=== PATIENT | male | born 1995 | race Caucasian/White ===

== ENCOUNTER 2016-08-26 16:22 | Inpatient (IN) | payer OTHER, BC ==
[~2016-08-26] VITALS: Ht 188 cm; Wt 102.9 kg
[2016-08-26] MEDS ORDERED: SODIUM CHLORIDE 0.9% 1000ML 3,000 ML IV STA (16:52)
[2016-08-26] MEDS ORDERED: KETOROLAC TROMETHAMINE 30 MG/ML VIAL IV STA (16:52)
[2016-08-26] MEDS ORDERED: ACETAMINOPHEN 500 MG TAB PO STA (16:52)
[2016-08-26] MEDS ORDERED: ONDANSETRON INJ 2 MG/ML 2 ML VIAL IV STA (16:52)
[2016-08-26 17:03] LABS: BASO % 0.1 %; BASO ABS # 0.01 K/uL (0-0.2); COMPLETE YES; EOS % 0.1 %; HEMATOCRIT 44.2 % (42-52); IG% 0.1 %; LYMPH % 4.4 %; LYMPH ABS # 0.43 K/uL (1.2-3.4); MEAN CELL VOLUME 85.7 fL (80-100); MEAN CORPUSCULAR HEMOGLOBIN 31.6 pg (25-34); MEAN CORPUSCULAR HGB CONC 36.9 g/dl (32-36); MEAN PLATELET VOLUME 9.9 fL (7.4-10.4); MONO % 0.8 %; NEUT % 94.5 %; PLATELET COUNT 157 K/uL (130-400); RED BLOOD COUNT 5.16 M/uL (4.7-6.1); WHITE BLOOD COUNT 9.83 K/uL (4.8-10.8)
[2016-08-26 17:11] LABS: ALT/SGPT 43 U/L (12-78); AST/SGOT 21 U/L (15-37); BLOOD UREA NITROGEN 16 mg/dl (7-18); BUN/CREATININE RATIO 14.4 (10-20); CALCIUM 9.2 mg/dl (8.5-10.1); CARBON DIOXIDE 23 mmol/L (21-32); CHLORIDE 104 mmol/L (98-107); GLUCOSE 86 mg/dl (70-99); SODIUM 138 mmol/L (136-145)
[2016-08-26 17:16] LABS: ALKALINE PHOSPHATASE 54 U/L (45-117); CKMB/CK RATIO 0.4 (0-3.0)
[2016-08-26 17:20] LABS: PARTIAL THROMBOPLASTIN RATIO 0.9; PROTHROMBIN TIME (PATIENT) 11.2 SECONDS (9.0-12.0)
--- NOTE | 2016-08-26 17:21 | DIAGNOSTIC IMAGING REPORT ---
CHEST ONE VIEW PORTABLE CLINICAL HISTORY: Fever and sepsis COMPARISON STUDY: No previous studies for comparison. FINDINGS: The heart is normal in size. There is no failure. There are minimal left basilar airspace opacities. This could reflect a minimal pneumonitis or atelectatic change. There are no pleural effusions.[ IMPRESSION: Minimal left basilar airspace opacities (inflammatory versus atelectatic). Electronically signed by: Virgilio Paul M.D. 08/26/2016 5:20 PM Dictated Date/Time: 08/26/2016 5:19 PM
[2016-08-26] MEDS ORDERED: LEVAQUIN 500MG / 100ML D5W IV ONE (18:00)
--- NOTE | 2016-08-26 18:02 | EMERGENCY ROOM VISIT NOTE ---
History Report prepared by Mpibdeniz: Sri Javier Under the Supervision of: Dr. Saroj Simms D.O. First contact with patient: 16:47 Chief Complaint: FLU LIKE SX Stated Complaint: FLU LIKE SX History of Present Illness The patient is a 20 year old male who presents to the Emergency Room with complaints of persistent vomiting that started last night. The patient states that he has experienced three episodes of vomiting. He states that he cannot keep anything down. He tried drinking fluids, but he vomited 20 minutes after. He is also experiencing a fever, mild headache, cough, sorethroat, neck stiffness in the front of his neck, intermittent abdominal pain, and generalized muscle aches. He denies photophobia and diarrhea. Additionally, he is experiencing lightheadedness with changes in position. Source of History: patient Onset: last night Quality: other (vomiting) Timing: other (persistent) Associated Symptoms: + abdominal pain (intermittent), + cough, + fevers, + headache (mild), + sorethroat, No diarrhea Note: lightheadedness with changes in position, neck stiffness in the front of his neck, generalized muscle aches, no photophobia Review of Systems See HPI for pertinent positives & negatives. A total of 10 systems reviewed and were otherwise negative. Past Medical & Surgical Medical Problems: (1) No pertinent past medical history Family History No pertinent family history Social History Smoking Status: Never Smoker Housing Status: lives with roommate Occupation Status: [employer] student Current/Historical Medications No Active Prescriptions or Reported Meds Allergies Coded Allergies: No Known Allergies (Unverified , 08/26/16) Physical Exam Vital Signs Date Time Temp Pulse Resp B/P Pulse Ox O2 Delivery O2 Flow Rate FiO2 08/26/16 17:42 39.2 125 100/51 96 Room Air 08/26/16 17:06 133 28 137/67 97 Room Air 08/26/16 16:33 124 08/26/16 16:27 39.6 145 28 130/71 96 Room Air Physical Exam CONSTITUTIONAL/VITAL SIGNS: Reviewed / noted above. GENERAL: Non-toxic in appearance. INTEGUMENTARY: Warm, dry, and [place]. HEAD: Normocephalic. EYES: without scleral icterus or trauma. ENT/OROPHARYNX: clear and moist. No photosensitivity. LYMPHADENOPATHY/NECK: Is supple without meningismus. Mild anterior lymphadenopathy. RESPIRATORY: Lungs clear and equal. CARDIOVASCULAR: Regular rate and rhythm. GI/ABDOMEN: Soft and nontender. No organomegaly or pulsatile mass. No rebound or guarding. Normal bowel sounds. EXTREMITIES: Warm and well perfused. BACK: No CVA tenderness. NEUROLOGICAL: Intact without focal deficits. PSYCHIATRIC: normal affect. MUSCULOSKELETAL: Normally developed with good muscle tone. Medical Decision & Procedures ER Provider Diagnostic Interpretation: X ray results and stated below per my interpretation and radiology interpretation. CHEST ONE VIEW PORTABLE IMPRESSION: Minimal left basilar airspace opacities (inflammatory versus atelectatic). Electronically signed by: Virgilio Paul M.D. 08/26/2016 5:20 PM Dictated Date/Time: 08/26/2016 5:19 PM Laboratory Results 08/26/16 16:35 Red Blood Count 5.16, Mean Corpuscular Volume 85.7, Mean Corpuscular Hemoglobin 31.6, Mean Corpuscular Hemoglobin Concent 36.9, Mean Platelet Volume 9.9, Neutrophils (%) (Auto) 94.5, Lymphocytes (%) (Auto) 4.4, Monocytes (%) (Auto) 0.8, Eosinophils (%) (Auto) 0.1, Basophils (%) (Auto) 0.1, Neutrophils # (Auto) 9.29, Lymphocytes # (Auto) 0.43, Monocytes # (Auto) 0.08, Eosinophils # (Auto) 0.01, Basophils # (Auto) 0.01 08/26/16 16:35 Test 08/26/16 16:35 08/26/16 16:37 08/26/16 16:50 White Blood Count 9.83 K/uL (4.8-10.8) Red Blood Count 5.16 M/uL (4.7-6.1) Hemoglobin 16.3 g/dL (14.0-18.0) Hematocrit 44.2 % (42-52) Mean Corpuscular Volume 85.7 fL (80-100) Mean Corpuscular Hemoglobin 31.6 pg (25-34) Mean Corpuscular Hemoglobin Concent 36.9 g/dl (32-36) Platelet Count 157 K/uL (130-400) Mean Platelet Volume 9.9 fL (7.4-10.4) Neutrophils (%) (Auto) 94.5 % Lymphocytes (%) (Auto) 4.4 % Monocytes (%) (Auto) 0.8 % Eosinophils (%) (Auto) 0.1 % Basophils (%) (Auto) 0.1 % Neutrophils # (Auto) 9.29 K/uL (1.4-6.5) Lymphocytes # (Auto) 0.43 K/uL (1.2-3.4) Monocytes # (Auto) 0.08 K/uL (0.11-0.59) Eosinophils # (Auto) 0.01 K/uL (0-0.5) Basophils # (Auto) 0.01 K/uL (0-0.2) RDW Standard Deviation 35.9 fL (36.4-46.3) RDW Coefficient of Variation 11.7 % (11.5-14.5) Immature Granulocyte % (Auto) 0.1 % Immature Granulocyte # (Auto) 0.01 K/uL (0.00-0.02) Prothrombin Time 11.2 SECONDS (9.0-12.0) Prothromb Time International Ratio 1.0 (0.9-1.1) Activated Partial Thromboplast Time 23.8 SECONDS (21.0-31.0) Partial Thromboplastin Ratio 0.9 Anion Gap 11.0 mmol/L (3-11) Est Creatinine Clear Calc Drug Dose 135.7 ml/min Estimated GFR () 109.9 Estimated GFR (Non- 94.8 BUN/Creatinine Ratio 14.4 (10-20) Calcium Level 9.2 mg/dl (8.5-10.1) Total Bilirubin 1.3 mg/dl (0.2-1) Direct Bilirubin 0.2 mg/dl (0-0.2) Aspartate Amino Transf (AST/SGOT) 21 U/L (15-37) Alanine Aminotransferase (ALT/SGPT) 43 U/L (12-78) Alkaline Phosphatase 54 U/L (45-117) Total Creatine Kinase 139 U/L (39-308) Creatine Kinase MB 0.6 ng/ml (0.5-3.6) Creatine Kinase MB Ratio 0.4 (0-3.0) Troponin I < 0.015 ng/ml (0-0.045) Total Protein 8.0 gm/dl (6.4-8.2) Albumin 4.7 gm/dl (3.4-5.0) Lipase 87 U/L (73-393) Bedside Lactic Acid Venous 1.52 mmol/L (0.90-1.70) Influenza Type A Antigen Neg for Influ A (NEG) Influenza Type B Antigen Neg for Influ B (NEG) Laboratory results as stated above per my review. Medications Administered Medications (Trade) Dose Ordered Sig/Chuck Route Start Time Stop Time Status Last Admin Dose Admin Sodium Chloride (Nss 1000ml) 3,000 ml @ 999 mls/hr Q3H1M STAT IV 08/26/16 16:52 08/26/16 19:52 08/26/16 16:55 999 MLS/HR Ketorolac Tromethamine (Toradol Inj) 30 mg NOW STAT IV 08/26/16 16:52 08/26/16 16:54 DC 08/26/16 17:01 30 MG Ondansetron HCl (Zofran Inj) 4 mg NOW STAT IV 08/26/16 16:52 08/26/16 16:54 DC 08/26/16 16:59 4 MG Acetaminophen (Tylenol Tab) 1,000 mg NOW STAT PO 08/26/16 16:52 08/26/16 16:54 DC 08/26/16 17:02 1,000 MG Levofloxacin (Levaquin / D5W) 500 mg NOW ONCE IV 08/26/16 18:00 08/26/16 18:01 DC 08/26/16 17:56 500 MG ECG Indication: tachycardia Rate (beats per minute): 121 Rhythm: sinus tachycardia Findings: no acute ischemic change, no ectopy ED Course 1648: Previous medical records were reviewed. The patient was evaluated in room B7. A complete history and physical examination was performed. 1652: Ordered Tylenol Tab 1000 mg PO, Zofran Inj 4 mg IV, Toradol Inj 30 mg IV, Sodium Chloride 3000 ml @ 999 mls/hr IV 1747: On reevaluation, the patient is resting comfortably, but still tachycardic. I discussed the results and findings with him. He verbalized agreement of the treatment plan. The patient will be evaluated for further management and care. 1755: Discussed the patient's case with Dr. Cheo Mccain [facility] [place] The patient will be evaluated for further treatment and disposition. 1800: Ordered Levofloxacin 500 mg IV Medical Decision Differential includes viral illness, influenza, streptococcal pharyngitis, meningitis, pneumonia, sinusitis, UTI, pyelonephritis, otitis media. This is a 20-year-old male who presents to the ED with a chief complaint of vomiting. The patient states that he has vomited about 3 times since last night. He states that he is not able to tolerate any liquids or Tylenol as afternoon. He complains of a mild headache. Denies any light sensitivity or neck stiffness. He does complain of a sore throat and some discomfort in the anterior neck region. He denies any abdominal pains, back pains, shortness of breath or chest pains. No rashes. Temperature here is 39.6. Heart rate is 124 and he is tachypneic with a respiratory rate of 28. His physical exam was mostly benign. He has some mild anterior lymphadenopathy. He is tachycardic. No other abnormalities were noted on his based on exam. He does look somewhat ill. Chest x-ray suggesting a left base infiltrate versus atelectasis. CBC is normal. Complete metabolic panel is normal. Lactate was normal. Troponin is negative. Flu swab was negative. EKG shows a sinus tach. The patient was treated with 3 L normal saline IV as well as some by mouth Tylenol as well as IV Toradol. On reassessment, the patient's symptoms are slightly improved. He still tachycardic with a heart rate in the 120 to 1:30 range. He still febrile. Because of his continued symptoms, he will be seen by the hospitalist service for further inpatient care. He was treated with Levaquin IV. Consults Time Called: 1750 Consulting Physician: Dr. Cheo LOZADA Returned Call: 1755 Discussed the patient's case with Dr. Cheo LOZADA. The patient will be evaluated for further treatment and disposition. Impression Primary Impression: Pneumonia Additional Impression: Influenza-like symptoms Scribe Attestation The scribe's documentation has been prepared under my direction and personally reviewed by me in its entirety. I confirm that the note above accurately reflects all work, treatment, procedures, and medical decision making performed by me. Departure Information Dispostion Being Evaluated By Hospitalist Prescriptions No Active Prescriptions or Reported Meds Referrals No Doctor, Assigned (PCP) Patient Instructions My [facility] Problem Qualifiers
[2016-08-26] MEDS ORDERED: KETOROLAC TROMETHAMINE 15 MG/ML VIAL IV. PRN (18:45)
[2016-08-26] MEDS ORDERED: ONDANSETRON INJ 2 MG/ML 2 ML VIAL IV PRN (18:45)
[2016-08-26] MEDS ORDERED: ACETAMINOPHEN 325 MG TAB PO PRN (18:45)
[2016-08-26] MEDS ORDERED: KETOROLAC TROMETHAMINE 30 MG/ML VIAL IV. PRN (18:45)
[2016-08-26 20:02] VITALS: BP 92/58; PULSE 135; TEMP 38; O2SAT 95; Ht 188 cm; Wt 102.9 kg
[2016-08-26] MEDS ORDERED: OPTIRAY 320 IV PRN (20:30)
[2016-08-26] MEDS ORDERED: D5W AND 1/2NSS + 20MEQ KCL 1,000 ML IV SCH (20:30)
--- NOTE | 2016-08-26 20:54 | DIAGNOSTIC IMAGING REPORT ---
ULTRASOUND VENOUS DOPPLER LWR EXT BILA CLINICAL HISTORY: Elevated d-dimer. Possible DVT. POSSIBLE PULMONARY EMBOLISM. COMPARISON STUDY: No previous studies for comparison. FINDINGS: Real-time and color flow Doppler imaging were performed. Flow was seen within the femoral, popliteal and calf veins with no intraluminal thrombus demonstrated. The saphenous vein is patent. IMPRESSION: No evidence of lower extremity DVT Electronically signed by: Virgilio Paul M.D. 08/26/2016 8:52 PM Dictated Date/Time: 08/26/2016 8:51 PM
[2016-08-26] MEDS: ENOXAPARIN 40 MG/0.4 ML SYR SQ SCH (21:07)
--- NOTE | 2016-08-26 21:08 | DIAGNOSTIC IMAGING REPORT ---
CT ANGIOGRAM OF THE CHEST CLINICAL HISTORY: Chest pain, fever, sepsis. Positive d-dimer. COMPARISON STUDY: No previous studies for comparison. TECHNIQUE: Following the IV administration of 89 mL of Optiray-320, CT angiogram of the thorax was performed from the thoracic inlet to the lung bases utilizing the pulmonary embolus protocol. Images are reviewed in the axial, sagittal, and coronal planes. IV contrast was administered without complication. MIP imaging was performed. CT DOSE: 577.40 mGy.cm FINDINGS: No pathologically enlarged axillary mediastinal or hilar lymph nodes were visualized. There was no evidence of thoracic aortic dilatation. There were no pulmonary artery filling defects to indicate acute pulmonary embolism. No pleural effusions are visualized. There are nodular airspace opacities within the left lower lobe. Fluffy airspace opacities are also present within the lingula, right middle lobe, and right lower lobe. The findings are consistent with a multilobar pneumonitis. IMPRESSION: 1. No CT evidence of acute pulmonary embolism 2. Multilobar airspace opacities most pronounced within the left lower lobe. The findings are consistent with a multilobar pneumonia. Clinical and radiographic follow-up is recommended. Electronically signed by: Virgilio Paul M.D. 08/26/2016 9:07 PM Dictated Date/Time: 08/26/2016 9:02 PM
[2016-08-26] MEDS: METHYLPREDNISOLONE IV 60 MG in SYRINGE 0 ML IV SCH (21:35)
[2016-08-26 21:57] LABS: URINE APPEARANCE CLEAR (CLEAR); URINE BILIRUBIN NEG (NEG); URINE COLOR YELLOW; URINE NITRITE NEG (NEG); URINE SPECIFIC GRAVITY 1.007 (1.000-1.030); UROBILINOGEN NEG (NEG); ZZUR CULT IF INDIC CLEAN CATCH NO
[2016-08-26 22:03] LABS: MANUAL MICROSCOPIC REQUIRED? NO; REVIEW REQ? NO
[2016-08-26 23:45] LABS: INFLUENZA A PCR Neg for Influ A (NEG); INFLUENZA B PCR Neg for Influ B (NEG)
[2016-08-26 23:52] VITALS: BP 117/75; PULSE 104; TEMP 37.1; O2SAT 94
[2016-08-27] VITALS (10 sets, daily range): BP systolic 119–145; BP diastolic 65–90; PULSE 82–111; TEMP 36.7–37.1; O2SAT 93–97
--- NOTE | 2016-08-27 01:30 | HISTORY & PHYSICAL EXAMINATION ---
DATE OF ADMISSION: 08/26/2016 CHIEF COMPLAINT: Fever, vomiting and cough. HISTORY OF PRESENT ILLNESS: This 20-year-old male patient was in his usual state of health when he went to work this morning. Shortly he was at work, he began vomiting and could not keep anything down. He was released to go home. He laid down; began coughing, having fevers, chills and rigors. He felt that he was sick enough that he needed to come to the Emergency Department. There he was found to have an oral temperature of 39.6, pulse was elevated at 145, sinus rhythm. The patient has not had any sick exposures and not traveled out of the country. 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 He has not had any rash, headache, joint pain, or chest pain. PAST MEDICAL HISTORY: Unremarkable. PAST SURGICAL HISTORY: No surgeries. MEDICATIONS: Does not take any home medications. ALLERGIES: He has no known drug allergies. FAMILY HISTORY: Noncontributory. SOCIAL HISTORY: The patient is single, public relations counselor, does not smoke, drink alcohol or use recreational substances. REVIEW OF SYSTEMS: Complete 10 system review was performed, all of which was negative. I put the positives up in the HPI. PHYSICAL EXAMINATION: VITAL SIGNS: As mentioned temperature 39.6 orally. Heart rate was 145 when he first came to the ER, it is around 125 now; respiratory rate 28; blood pressure 130/71; pulse ox 96% on room air. GENERAL: The patient is diaphoretic, but not in distress, he is not having rigors currently. HEENT: TMs are intact, no inflammation. Extraocular muscles are intact. Pupils are equal, round and react to light and accommodation. Sclera is somewhat injected. Throat is clear. NECK: No JVD or lymphadenopathy. LUNGS: Essentially clear to auscultation with just mild expiratory wheezing. HEART: Regular. Normal S1, S2, without murmurs, rubs or gallops. ABDOMEN: Soft, nontender, nondistended, positive bowel sounds. EXTREMITIES: No clubbing, cyanosis or edema. NEUROLOGIC: Cranial nerves II-XII are grossly intact and nonfocal. SKIN: Warm and dry. No obvious rash or petechiae. EXTREMITIES: No clubbing, cyanosis or edema. PSYCHIATRIC: The patient is pleasant and cooperative. No signs of significant anxiety or depression. LABORATORY DATA: His sodium is 138, potassium 4.0, chloride 104, CO2 23, BUN 16, creatinine 1.10. Lactic acid is normal at 1.52. Sugar of 86. Direct bilirubin 0.2, AST of 21, ALT of 43, CK-MB of 0.6, troponin less than 0.015. Albumin 4.7, lipase 87. White count 9.83, hemoglobin 16.3, hematocrit 44.2, platelet count 157,000. INR of 1.0. Flu A and B; both negative. IMAGING: Chest x-ray was performed showing minimal left basilar airspace opacities, inflammatory versus atelectatic. Blood cultures are pending. ASSESSMENT: Acute onset, less than 24 hours of febrile illness that started out with vomiting and developed into cough. He is still spiking temperatures. He does appear to have pneumonitis and this may certainly represent a viral illness in which we will be giving supportive care as he has an early pneumonia. We are treating him with IV Levaquin, IV fluids, neb treatments and because he is tachycardic, short of breath, has increased respiratory rate I feel obligated to check D-dimer. If it is elevated, we will proceed with a CT scan of the chest to rule out pulmonary embolism. He is given IV Toradol for pain or fever, Tylenol as well and antiemetic. DVT prophylaxis in the form of TEDs, SCDs and subcutaneous Lovenox. Protonix to treat or prevent any underlying gastritis. MTDD
[2016-08-27] MEDS: METHYLPREDNISOLONE IV 60 MG in SYRINGE 0 ML IV SCH ×3 (05:48→21:42)
[2016-08-27 06:16] LABS: BASO % 0.1 %; BASO ABS # 0.01 K/uL (0-0.2); COMPLETE YES; HEMATOCRIT 39.8 % (42-52); IG% 0.3 %; LYMPH % 4.2 %; LYMPH ABS # 0.73 K/uL (1.2-3.4); MEAN CORPUSCULAR HEMOGLOBIN 30.8 pg (25-34); MEAN CORPUSCULAR HGB CONC 36.2 g/dl (32-36); MONO % 3.6 %; NEUT % 91.8 %; PLATELET COUNT 156 K/uL (130-400); RED BLOOD COUNT 4.68 M/uL (4.7-6.1); WHITE BLOOD COUNT 17.21 K/uL (4.8-10.8)
[2016-08-27 06:40] LABS: BUN/CREATININE RATIO 11.5 (10-20); CALCIUM 8.6 mg/dl (8.5-10.1); CREATININE 1.1 mg/dl (0.60-1.40); POTASSIUM 4.4 mmol/L (3.5-5.1)
[2016-08-27] MEDS: ALBUT/IPRATROP 3MG/0.5MG NEB 3 ML VIAL INH SCH ×4 (07:03→19:47)
[2016-08-27] MEDS: PANTOprazole SOD 40 MG TAB PO SCH (08:12)
[2016-08-27] MEDS: LEVOFLOXACIN / D5W 750 MG in PREMIXED IN D5W 150 ML IV SCH (17:30)
--- NOTE | 2016-08-27 18:57 | Hospitalist Progress Note ---
Hospitalist Progress Note Date of Service Aug 27, 2016. Subjective Pt evaluation today including: conversation w/ patient, physical exam, chart review, lab review, review of studies, review of inpatient medication list The patient has b/l pneumonia on CT chest. No further fevers, No vomiting. He is feeling better. May be able to discharged tomorrow. Additional Comments: A 10 system review was performed and all were negative. Positives were placed in the subjective section. Objective Vital Signs Date Time Temp Pulse Resp B/P Pulse Ox O2 Delivery O2 Flow Rate FiO2 08/27/16 16:15 36.9 111 20 142/72 96 Room Air 08/27/16 14:20 93 14 96 Room Air 08/27/16 12:00 Room Air 08/27/16 11:23 36.9 94 18 131/79 97 Room Air 08/27/16 11:13 82 14 96 Room Air 08/27/16 08:05 Room Air 08/27/16 07:52 36.7 95 18 131/75 96 Room Air 08/27/16 07:03 99 14 95 Room Air 08/27/16 04:28 36.8 85 20 119/65 93 Room Air 08/27/16 04:00 Room Air 08/26/16 23:59 Room Air 08/26/16 23:52 37.1 104 20 117/75 94 Room Air 08/26/16 20:02 38.0 135 18 92/58 95 Room Air 08/26/16 18:59 125 20 101/49 98 Room Air Physical Exam Notes: GENERAL: A,A,&O x3 HEENT: TMs are intact, no inflammation. Extraocular muscles are intact. Pupils are equal, round and react to light and accommodation. Sclera is somewhat injected. Throat is clear. NECK: No JVD or lymphadenopathy. LUNGS: Essentially clear to auscultation with just mild expiratory wheezing. HEART: Regular. Normal S1, S2, without murmurs, rubs or gallops. ABDOMEN: Soft, nontender, nondistended, positive bowel sounds. EXTREMITIES: No clubbing, cyanosis or edema. NEUROLOGIC: Cranial nerves II-XII are grossly intact and nonfocal. SKIN: Warm and dry. No obvious rash or petechiae. EXTREMITIES: No clubbing, cyanosis or edema. PSYCHIATRIC: The patient is pleasant and cooperative. No signs of significant anxiety or depression. Laboratory Results Last 24 Hours Test 1/28/17 21:30 08/26/16 21:45 08/27/16 05:49 Influenza Type A (RT-PCR) Neg for Influ A Influenza Type B (RT-PCR) Neg for Influ B Urine Color YELLOW Urine Appearance CLEAR Urine pH 5.0 Urine Specific [place] 1.007 Urine Protein NEG Urine Glucose (UA) NEG Urine Ketones 3+ Urine Occult Blood NEG Urine Nitrite NEG Urine Bilirubin NEG Urine Urobilinogen NEG Urine Leukocyte Esterase NEG Urine WBC (Auto) 0 /hpf Urine RBC (Auto) 0-4 /hpf Urine Hyaline Casts (Auto) 1-5 /lpf Urine Epithelial Cells (Auto) 5-10 /lpf Urine Bacteria (Auto) NEG White Blood Count 17.21 K/uL Red Blood Count 4.68 M/uL Hemoglobin 14.4 g/dL Hematocrit 39.8 % Mean Corpuscular Volume 85.0 fL Mean Corpuscular Hemoglobin 30.8 pg Mean Corpuscular Hemoglobin Concent 36.2 g/dl Platelet Count 156 K/uL Mean Platelet Volume 10.0 fL Neutrophils (%) (Auto) 91.8 % Lymphocytes (%) (Auto) 4.2 % Monocytes (%) (Auto) 3.6 % Eosinophils (%) (Auto) 0.0 % Basophils (%) (Auto) 0.1 % Neutrophils # (Auto) 15.80 K/uL Lymphocytes # (Auto) 0.73 K/uL Monocytes # (Auto) 0.62 K/uL Eosinophils # (Auto) 0.00 K/uL Basophils # (Auto) 0.01 K/uL RDW Standard Deviation 35.9 fL RDW Coefficient of Variation 11.8 % Immature Granulocyte % (Auto) 0.3 % Immature Granulocyte # (Auto) 0.05 K/uL Sodium Level 141 mmol/L Potassium Level 4.4 mmol/L Chloride Level 108 mmol/L Carbon Dioxide Level 24 mmol/L Anion Gap 9.0 mmol/L Blood Urea Nitrogen 13 mg/dl Creatinine 1.10 mg/dl Est Creatinine Clear Calc Drug Dose 135.7 ml/min Estimated GFR () 109.9 Estimated GFR (Non- 94.8 BUN/Creatinine Ratio 11.5 Random Glucose 151 mg/dl Calcium Level 8.6 mg/dl Assessment and Plan 1) multilobar Pneumonia - IV antibiotics, fever resolved, feeling better 2) bronchospasm - secondary to #1 using nebs 3) vomiting - resolved. If stays afebrile and feels better tomorrow he may be able to be discharged. Discharge planning: home
[2016-08-27] MEDS: ENOXAPARIN 40 MG/0.4 ML SYR SQ SCH (21:42)
[2016-08-28] VITALS (11 sets, daily range): BP systolic 127–138; BP diastolic 60–70; PULSE 93–113; TEMP 36.8–37.1; O2SAT 94–97
[2016-08-28] MEDS: METHYLPREDNISOLONE IV 60 MG in SYRINGE 0 ML IV SCH ×2 (05:59→15:28)
[2016-08-28] MEDS: ALBUT/IPRATROP 3MG/0.5MG NEB 3 ML VIAL INH SCH ×3 (07:12→15:29)
[2016-08-28] MEDS: PANTOprazole SOD 40 MG TAB PO SCH (07:29)
[2016-08-28] MEDS ORDERED: GUAI1SOL5 PO (11:24)
[2016-08-28] MEDS ORDERED: METH4PAK PO (11:24)
[2016-08-28] MEDS ORDERED: LEVO1TAB35 PO (11:24)
[2016-08-28] MEDS ORDERED: VNTHFA/IN INH (11:24)
--- NOTE | 2016-08-28 11:30 | Discharge Instructions ---
Discharge Instructions Admission Reason for Admission: Febrile Illness,Acute, Pneumonitis Discharge Discharge Diagnosis / Problem: B/l pneumonia. Discharge Goals Goal(s): Decrease discomfort, Improve disease control Activity Recommendations Activity Limitations: resume your previous activity . Instructions / Follow-Up Instructions / Follow-Up Follow-up with your PCP. Call office for an appointment 5-7 days. Current Hospital Diet Patient's current hospital diet: Regular Diet Discharge Diet Recommended Diet: Regular Diet Procedures Procedures Performed: NONE Pending Studies Studies pending at discharge: yes List of pending studies: Final results of blood cultures are pending. The preliminary report shows no growth for 2 vials. Work Instructions Additional Instructions: May return to work (full duty) with no restrictions on Sunday08-30-16. You are not contagious to others. Medical Emergencies . Who to Call and When: Medical Emergencies: If at any time you feel your situation is an emergency, please call 911 immediately. . Non-Emergent Contact Non-Emergency issues call your: Primary Care Provider . . "Provider Documentation" section prepared by Ricki Kaye. VTE Core Measure Inpt VTE Proph given/why not?: Enoxaparin (Lovenox)EDVIN, T.ESotero. Angelina, SCD's
--- NOTE | 2016-08-28 11:47 | Discharge Summary ---
Discharge Summary Admission Date: Aug 26, 2016 at 18:41 Discharge Date: Aug 28, 2016 Discharge Disposition: Home Principal Diagnosis: B/l Pneumonia. Problems/Secondary Diagnoses: Bronchospasm, fever/chills, vomiting. Procedures: None. Consultations: None. Medication Reconciliation New Medications: Albuterol Hfa (Ventolin Hfa) 200 Puffs/14213 Mcg Aers 2-4 PUFFS INH Q6H for SOB/Wheezing, #1 INHALER 1 Refill NS Guaifenesin-Codeine (Codeine/Guaifenesin 100-10 mg/5Ml) 1 Snehal Snehal 10 ML PO Q4 for Cough, #240 ML 0 Refills NS Levofloxacin (Levaquin) 750 Mg Tab 750 MG PO DAILY for 7 Days, #7 TAB NS Methylprednisolone (Medrol Dosepak) 4 Mg Samuel 1 PKT PO UD for 6 Days, #1 PKT NS Discharge Exam A 10 system review was performed and all were negative. Positives were placed in the subjective section. GEN: Awake, alert, and oriented x 3. Not in acute distress HEENT: Tm's intact, no inflammation, EOMI, PERRLA, MMM Neck: Soft, supple Lungs: CTA b/l, no r/r Mild Expiratory wheezes b/l. Heart: REG, nrl S1S2 without murmurs, rubs or gallops Abdomen: Soft, NT, ND, + BS EXT: No C/C/E NEURO: CN's II-XII grossly intact, non-focal Skin: warm, dry, no rashes PSYCH: pleasant, cooperative, no signs of significant anxiety or depression. Hospital Course The patient presented to the ED with a febrile illness that began with vomiting and progressed to cough and diaphoresis and rigors. CXR showed inflammatory vs. infectious changes. Due to elevated heart rate and SOB I ordered a d dimer. Being elevated, he underwent a CTA of the chest. There was no PE, but it did reveal b/l multilobar pneumonia. The patient was placed on IV Levaquin, IV Solu- medrol, duo nebs, IVF, antiemetics, antipyretics. After antibiotic was given he had no further temperature spikes. Nausea and vomiting resolved. He felt that his lungs were improving. He felt that he would be able to manage as an outpatient by the day of discharge. The lowest pulse ox was 93% on room air. Total Time Spent: Greater than 30 minutes This includes examination of the patient, discharge planning, medication reconciliation, and communication with other providers. Discharge Instructions Please refer to the electronic Patient Visit Report (Discharge Instructions) for additional information. Follow-Up PCP in 5-7 days.
[2016-08-28] MEDS: LEVOFLOXACIN / D5W 750 MG in PREMIXED IN D5W 150 ML IV SCH (17:10)
== END 2016-08-28 19:18 | disposition home or self-care (01) | DRG 195 ==
LOC: ENRESERVDT → ENRESERVTM → C.EDB 16:24 → C.2E 18:41
PROVIDERS: ADMIT Hospitalist; ATTEND Hospitalist
DX: J18.9 Pneumonia, unspecified organism (principal); J98.01 Acute bronchospasm